=== PATIENT | female | born 1985 | race Caucasian/White ===

== ENCOUNTER 2016-05-29 18:29 | Emergency (ER) | payer OTHER ==
[2016-05-29 18:50] VITALS: BP 119/87
[2016-05-29] MEDS ORDERED: Tetan/Diph/Pertus SYR(Tdap)* 0.5 ML SYR(BOOSTRIX) use SYR IM ONE (18:58)
--- NOTE | 2016-05-29 19:10 | UC ---
Laceration HPI - HPI Summary HPI Summary: Pt presents with c/o laceration to right 5th finger base of phalanx and distal end of 5th metacarpal. Pt was washing a knife and cut her hand. Pt is not UTD with tetanus - History Of Current Complaint Chief Complaint: UCLaceration Stated Complaint: FINGER LAC Time Seen by Provider: 05/29/16 18:45 Hx Obtained From: Patient Laceration Location: Finger Mechanism Of Injury: Sharp Trauma Onset/Duration: Sudden Onset, Lasting Minutes Severity: Mild Aggravating Factors: Movement Related History: Dominant Hand Right - Allergies/Home Medications Allergies/Adverse Reactions: Allergies Allergy/AdvReac Type Severity Reaction Status Date / Time Sulfa Antibiotics Allergy Rash Verified 05/29/16 18:50 Home Medications: Home Medications Lorazepam [Ativan 1 MG TAB] 1 mg PO 05/29/16 [History] PMH/Surg Hx/FS Hx/Imm Hx Previously Healthy: Yes Endocrine History Of: Denies: Diabetes, Thyroid Disease Cardiovascular History Of: Denies: Cardiac Disorders, Hypertension Respiratory History Of: Denies: COPD, Asthma GI/ History Of: Denies: Ulcer - Surgical History Surgical History: Yes Surgery Procedure, Year, and Place: scoliosis repair to back - Family History Known Family History: Positive: Other - positive [facility] for laceration - Social History Occupation: Employed Full-time Lives: With Family Alcohol Use: Occasionally Substance Use Type: None Smoking Status (MU): Never Smoked Tobacco Review of Systems Constitutional: Negative Skin: Other - laceration Eyes: Negative ENT: Negative Respiratory: Negative Cardiovascular: Negative Gastrointestinal: Negative Genitourinary: Negative Motor: Negative Neurovascular: Negative Musculoskeletal: Negative Neurological: Negative Psychological: Negative All Other Systems Reviewed And Are Negative: Yes Physical Exam Triage Information Reviewed: Yes Appearance: Well-Appearing Vital Signs: Initial Vital Signs Temp 97.9 F 05/29/16 18:45 Pulse 79 05/29/16 18:45 Resp 18 05/29/16 18:45 BP 119/87 05/29/16 18:45 Pulse Ox 100 05/29/16 18:45 Eye Exam: Normal ENT Exam: Normal Neck exam: Normal Respiratory Exam: Normal Cardiovascular Exam: Normal Musculoskeletal Exam: Normal Neurological Exam: Normal Psychological Exam: Normal Skin Exam: Other - laceration to right 5th metacarpal anterior, base of 5th phalanx dital end of 5th metacarpal Laceration Repair - Laceration Repair 1 Description: Linear Laceration Size After Repair: Length (cm) - 0.5, Width (mm) - 2, Depth (mm) - 2 Modified For Repair: No Cleansing Completed Via Routine Prep: Yes Irrigation With Pressure Irrigation Device: Yes Closure Material: Skin Adhesive, SteriStrips Closure Method: Single Layer Suture Of: Skin Laceration Course/Dx - Differential Dx - Laceration/Wound Differental Diagnoses: Laceration - Laceration repair of right 5th anterior distal metacarpal phalangeal joint. REpaired with skin adhesive and steristrips. edges well approximated. Pt tolerated procedure well. Provider Diagnoses: Laceration. Laceration repair. Boosterix- tetanus vaccine Discharge - Discharge Plan Condition: Stable Disposition: HOME Patient Education Materials: Diphtheria/Acellular Pertussis/Tetanus Booster Vaccine (Tdap) (Injection), Finger Laceration (ED), Skin Adhesive Care (ED) Referrals: [facility] [place] [facility] [Outside] Additional Instructions: Please follow up with your PCP or return to clinic.
== END 2016-05-29 19:24 | disposition home or self-care (01) ==
LOC: UCEAST 18:29
DX: S61.216A Laceration without foreign body of right little finger without damage to nail, initial encounter (principal); W26.0XXA Contact with knife, initial encounter
CPT/HCPCS: 12001; 90471; 90715; 99212; G0463

== ENCOUNTER 2020-06-05 19:00 | Inpatient (IN) ==
[2020-06-05] MEDS ORDERED: Lactated Ringers 1000 ml BAG 1,000 ML IV ONE ×2 (19:26→22:31)
[2020-06-05 19:41] LABS: ABS Eosinophils 0.1 10^3/ul (0-0.6); ABS Lymphocytes 1.7 10^3/ul (1.0-4.8); ABS Monocytes 0.9 10^3/ul (0-0.8); ABS Neutrophils 7.9 10^3/ul (1.5-7.7); Eosinophil % 0.7 %; Hematocrit 37 % (35-47); Lymphocyte % 15.7 %; Mean Corpuscular HGB Conc 35 g/dL (31-36); Mean Corpuscular Hemoglobin 32 pg (27-31); Mean Corpuscular Volume 93 fL (80-97); Mean Platelet Volume 7.8 fL (7.4-10.4); Platelet Count 255 10^3/uL (150-450); Red Blood Count 4.02 10^6 /uL (3.70-4.87); Red Cell Distribution Width 13 % (10-15); White Blood Count 10.6 10^3/uL (3.5-10.8)
[2020-06-05] MEDS ORDERED: OBEPIDURAL 250 ML EPIDURAL ONE (19:47)
[2020-06-05 20:08] LABS: Urine Benzodiazepine Screen None Detected (None Detect); Urine Cannabinoids Screen None Detected (None Detect); Urine Opiates Screen None Detected (None Detect)
[2020-06-05] MEDS ORDERED: Bupivacaine 0.25% SDV PF 10 ML VIAL INJ ONE (20:19)
[2020-06-05] MEDS ORDERED: EPHEDrine (Pressors) 50 MG/ML VIAL ONE (20:43)
[2020-06-05] MEDS ORDERED: Phenylephrine 40 mcg/mL 10mL (400mcg) SYRINGE IV PUSH PRN ×2 (22:31)
[2020-06-05] MEDS ORDERED: EPHEDrine (Pressors) 50 MG/ML VIAL IV PUSH PRN ×2 (22:31)
[2020-06-05] MEDS ORDERED: Sodium Citrate/Citric Acid LIQ 15 ML UDC PO PRN (22:31)
[2020-06-05] MEDS ORDERED: Lactated Ringers 1000 ml BAG 1,000 ML IV SCH ×2 (23:00→23:45)
[2020-06-05] MEDS ORDERED: OBEPIDURAL 250 ML EPIDURAL SCH (23:00)
[2020-06-05] MEDS ORDERED: Oxytocin in LR 20 UNITS/1,000 ML BAG IVPB ONE (23:01)
[2020-06-05] MEDS ORDERED: Witch Hazel PAD JAR TOPICAL PRN (23:24)
[2020-06-05] MEDS ORDERED: Dibucaine 1% OINT 28.35 GM TUBE PR PRN (23:24)
[2020-06-05] MEDS ORDERED: Oxytocin in LR 20 UNITS/1,000 ML BAG IVPB SCH (23:45)
[2020-06-05] MEDS ORDERED: Lidocaine 1% VIAL 10 MG/ML VIAL ONE (23:49)
[2020-06-05 23:56] LABS: Urine Appearance Cloudy; Urine Bilirubin Negative (Negative); Urine Blood Negative (Negative); Urine Color Yellow; Urine Glucose Negative (Negative); Urine Ketones Trace (Negative); Urine Nitrite Negative (Negative); Urine Protein Negative (Negative); Urine Specific Gravity 1.011 (1.010-1.030); Urine Urobilinogen Negative (Negative)
[2020-06-06 08:14] LABS: ABS Lymphocytes 2.1 10^3/ul (1.0-4.8); ABS Neutrophils 11.1 10^3/ul (1.5-7.7); Eosinophil % 0.3 %; Hematocrit 29 % (35-47); Hemoglobin 9.9 g/dL (12.0-16.0); Lymphocyte % 14.6 %; Mean Corpuscular HGB Conc 35 g/dL (31-36); Mean Corpuscular Hemoglobin 33 pg (27-31); Mean Corpuscular Volume 94 fL (80-97); Mean Platelet Volume 7.9 fL (7.4-10.4); Platelet Count 212 10^3/uL (150-450); Red Blood Count 3.05 10^6 /uL (3.70-4.87); Red Cell Distribution Width 13 % (10-15); White Blood Count 14.3 10^3/uL (3.5-10.8)
[2020-06-07 11:40] VITALS: BP 114/67
== END 2020-06-07 13:44 | disposition home or self-care (01) | DRG 560 ==
LOC: MCHOBOUT 19:00 → MCHOB 19:24
PROVIDERS: ADMIT Midwife; ATTEND Midwife